=== PATIENT | female | born 1945 | race Caucasian/White ===

== ENCOUNTER 2019-01-09 11:35 | Outpatient (CLI) | payer OTHER, SELFPAY ==
--- NOTE | 2019-01-09 06:00 | DI.RAD_ITS ---
SYMPTOMS/DIAGNOSIS: SACROILIAC JOINT DYSFUNCTION, SACROILIAC JOINT INJECTION PAIN CLINIC: Fluoroscopy Time: 31.1 sec Images submitted from the pain clinic demonstrate needle localization of the left SI joint by Dr. Alexandre in conjunction with an SI joint injection.
[2019-01-09 11:46] VITALS: BP 143/75; PULSE 84; RESP 18; TEMP 37.4; O2SAT 97
[2019-01-09 12:41] VITALS: BP 140/88; PULSE 82; RESP 16; O2SAT 98
[2019-01-09] MEDS: methylPREDNISolone ACETATE 80 MG/ML VIAL IJ (12:44)
[2019-01-09] MEDS: Bupivacaine 0.5% Pres-Free 10 ML VIAL IJ (12:45)
[2019-01-09] MEDS: Omnipaque 240 MG/ML 50 ML BTL IJ (12:45)
--- NOTE | 2019-01-09 13:27 | PDOC.PAIN_ITS ---
Pain Clinic Procedure Note Current Active Problems Problem Status Onset Sacroiliac joint dysfunction of left side Chronic INTRA-ARTICULAR SI JOINT INJECTION SUSANA BLANKENSHIP has been referred to the [facility] for intra- articular SI joint injection. COMMENTS: Left SI joint dysfunction Patient was interviewed and the medical record reviewed. There were no medical, pharmacologic, radiographic or other structural contraindications to attempting fluoroscopically guided intra-articular SI joint injection. Risks and expected side effects as well as potential benefit of the procedure were reviewed and voiced concerns addressed. The printed consent form was signed and witnessed. Standard time-out procedure was performed. Patient was placed in the prone position on the fluoroscopy table and automated blood pressure cuff and pulse oximeter applied. The skin entry point for approaching { left l} SI joints was identified under the most advantageous fluoroscopic view and marked. Following thorough Chlorhexadine preparation of the skin and draping and 1% lidocaine infiltration of the skin entry point and subcutaneous tissues, a 22 gauge spinal needle was placed under fluoroscopic guidance into { left } SI joints was identified under the most advantageous fluoroscopic view and marked. Following thorough Chlorhexadine preparation of the skin and draping and 1% lidocaine infiltration of the skin entry point and subcutaneous tissues, a 22 gauge spinal needle was placed under fluoroscopic guidance into /left/ SI joint. Intra-articular placement was confirmed by a clear arthrogram resulting from the injection of 0.25ml Omnipaque 240, 1ml 0.5% bupivacaine, and half ml (40mg) of 80mg concentration Depomedrol were injected intra-articularily with an initial reproduction of a significant component of the usual pain. Vital signs were stable throughout the procedure and were as recorded in the docflowsheet by the nursing staff. If given, dosages of intravenous drugs for anxiolysis and analgesia were documented in MAR. Follow up plans and appointments were discussed with the patient. Post procedure instruction was given as documented in nursing documentation and having met discharge criteria, and was discharged from the [facility]. COMMENTS: Pain went from a 3/10 to a 0/10. She will follow-up as needed. She is complaining of pain in the upper lumbar spine and has had surgery since her last MRI. I would consider updating her MRI if she is not improved. CC: Carrol Hernandez
== END 2019-01-09 11:55 ==
PROVIDERS: PCP Physician Assistant Medical; Visit Provider Anesthesiology Pain Medicine
DX: M53.3 Sacrococcygeal disorders, not elsewhere classified (principal)
CPT/HCPCS: 20605; 72200; J1040; Q9967

== ENCOUNTER 2019-01-23 00:55 | Outpatient (CLI) | payer MEDICARE, OTHER, SELFPAY ==
--- NOTE | 2019-01-23 14:31 | DI.MRI_ITS ---
SYMPTOMS/DIAGNOSIS: CHRONIC NECK PAIN MRI OF THE CERVICAL SPINE: Comparison is 11/13/17. At C7-T1, there is no focal disc herniation, central spinal canal or neural foraminal stenosis. At C6-C7, there is prominence of the left uncovertebral joint causing mild left neural foraminal stenosis. The disc space is otherwise unremarkable. At C5-C6, there is no focal disc herniation, central spinal canal or neural foraminal stenosis. Mild hypertrophic changes of the right facet joint is noted. At C4-C5, there is prominence of the osteophyte-disc complex eccentric to the right. There is mild narrowing of the central spinal canal. There are hypertrophic changes of the right uncovertebral joint causing moderately severe right neural foraminal stenosis. There is mild narrowing of the left neural foramen. At C3-C4, there is mild prominence of the left uncovertebral joint causing mild left neural foraminal narrowing. Otherwise, the disc level is unremarkable. C2-C3 is unremarkable. IMPRESSION: Stable degenerative changes throughout the cervical spine when compared to the examination from 11/13/17.
== END 2019-01-23 01:15 ==
PROVIDERS: PCP Physician Assistant Medical; Visit Provider Nurse Practitioner Family
DX: M54.2 Cervicalgia (principal); M47.812 Spondylosis without myelopathy or radiculopathy, cervical region; M48.02 Spinal stenosis, cervical region
CPT/HCPCS: 72141

== ENCOUNTER 2019-02-18 10:15 | Outpatient (CLI) | payer OTHER, SELFPAY ==
[2019-02-18 12:46] LABS: CREATININE 0.77 mg/dL (0.55-1.02)
== END 2019-02-18 10:35 ==
PROVIDERS: PCP Physician Assistant Medical; Visit Provider Nurse Practitioner Family
DX: M96.1 Postlaminectomy syndrome, not elsewhere classified (principal)
CPT/HCPCS: 36415; 82565

== ENCOUNTER 2019-03-07 00:40 | Outpatient (CLI) | payer OTHER, MEDICARE, SELFPAY ==
[2019-03-07] MEDS: Normal Saline Flush 10 ML SYR IVP (15:54)
[2019-03-07] MEDS: Gadoterate meglumine 20 ML VIAL 14 ML IVP (15:55)
--- NOTE | 2019-03-07 16:07 | DI.MRI_ITS ---
SYMPTOM/DIAGNOSIS: L5-s1 FUSION, H/O LUMBAR LAMINECTOMY MRI LUMBAR SPINE: Comparison is made with 20 November 2013. T1, T2 and STIR sagittal , T1 and T2 axial and pre and post Gadolinium FS T1 axial and sagittal sequences were performed. Laminectomy defects are seen at the L3 and L4 levels. The T-10, 11 through T12 L-1 levels are unremarkable. At L1-2 there is mild concentric disc bulging but no significant central canal stenosis or neural foraminal narrowing. At L2-3 there are end plate osteophytes projecting greater on the right side. There is mild broad based disc bulging. There are mild facet degenerative changes. There is mild right neural foraminal narrowing. There is slight central canal stenosis. At L3-4 there are broad based osteophytes and mild disc bulging. There are mild facet degenerative changes. There is severe left and mild to moderate right neural foraminal narrowing but no significant central canal stenosis. At L4-5 there is mild broad based disc bulging. There are mild facet degenerative changes as well as post surgical changes. There is moderate right neural foraminal narrowing but no significant central canal stenosis. At L5-S1, there is slight disc bulging. There are moderate facet degenerative changes but no significant central canal stenosis or neural foraminal narrowing. The conus medullaris appears normal. The aorta is normal in diameter. There is no evidence of a disc herniation or abnormal areas of enhancement post gadolinium. IMPRESSION: Degenerative disc changes and facet degenerative changes which cause neural foraminal narrowing which is greatest on the left side at L3-4. There is no significant central canal stenosis.
== END 2019-03-07 01:00 ==
PROVIDERS: PCP Physician Assistant Medical; Visit Provider Nurse Practitioner Family
DX: M51.36 Other intervertebral disc degeneration, lumbar region (principal); M47.816 Spondylosis without myelopathy or radiculopathy, lumbar region; Z98.1 Arthrodesis status
CPT/HCPCS: 72158

== ENCOUNTER 2019-03-26 12:48 | Emergency (ER) | payer OTHER, SELFPAY ==
[2019-03-26 12:51] VITALS: BP 141/73; PULSE 80; RESP 16; TEMP 36.7; O2SAT 97
[2019-03-26] MEDS: predniSONE 20 MG TAB 60 MG PO (14:29)
[2019-03-26 14:52] VITALS: BP 141/73; PULSE 80; RESP 16; TEMP 36.7; O2SAT 97
--- NOTE | 2019-03-26 14:59 | ED.GENADUL_ITS ---
Discharge Plan Disposition Patient Disposition: HOME Condition: Stable Discharge Details Chief Complaint: Nk/Back Pain Clinical Impression: Acute exacerbation of chronic low back pain Primary Care Provider: Carrol Hernandez ED Provider: Shalini Crowe Home Meds and New Rx's Prescriptions: New prednisone 50 mg tablet 50 mg PO DAILY Qty: 4 RF: 0 tramadol 50 mg tablet 50 mg PO BID PRN (Reason: pain) Qty: 6 RF: 0 Continued lorazepam 2 mg tablet 2 mg PO TID RF: 0 folic acid 1 mg tablet 1 mg PO .6 days per week RF: 0 acetaminophen [Tylenol Extra Strength] 500 mg tablet 1,000 mg PO DAILY PRNRF: 0 diclofenac sodium 1 % gel 4 gm TP QID PRN (Reason: low back pain) 6 Days Qty: 100 RF: 11 methotrexate sodium 25 mg/mL solution 12.5 mg SC QWEEK RF: 0 metformin 500 MG tablet 500 mg PO DAILY RF: 0 multivitamin [Daily Value] 1 EACH tablet 1 ea PO DAILY RF: 0 aspirin 81 MG tablet,chewable 81 mg PO DAILY RF: 0 Slow-Mag 71.5 MG tablet,delayed release (DR/EC) 71.5 mg PO BID RF: 0 metformin 500 MG tablet 1,000 mg PO HS RF: 0 glimepiride 1 MG tablet 1 mg PO BID RF: 0 venlafaxine 37.5 mg tablet 37.5 mg PO BID RF: 0 Discharge Instructions Instructions: Prednisone (By mouth), Tramadol (By mouth), Low Back Strain (ED) Additional Instructions: Please return immediately to the emergency department if you develop any new or worsening symptoms or if you become otherwise concerned. It is extremely important that you call as soon as possible to make an appointment to be seen by her primary care doctor. Please do not take tramadol within 8 hours of taking any other sedating medications including her lorazepam. Do not drive, operate machinery, or make important decisions after taking tramadol. Referrals: Carrol Hernandez [Primary Care Provider] - Discharge Data Discharge Date/Time-TO BE ENTERED AT DEPARTURE: 03/26/19 14:52 Medical Decision Making Samia Mancuso is a 73-year-old woman with a history of non-insulin dependent diabetes, urinary incontinence, chronic low back pain status post lumbar fusion and laminectomy presenting to the emergency department with acute on chronic low back pain beginning this morning similar to prior exacerbations. On exam patient is very well and nontoxic appearing. Mild tenderness of the middle lumbar spine and right paraspinal area. Normal neurologic exam. Postvoid residual bladder scan performed by nursing, 0 mls. Exam/history is not consistent with epidural abscess/hematoma, cauda equina syndrome, other cord compression, infectious etiology, acute fracture, acute aortic etiology. Plan for short course tramadol, prednisone burst. Patient has lorazepam on her medication list. She reports that she does not take this frequently. I had a lengthy discussion with the patient regarding safe use of tramadol including not taking within 8 hours of taking lorazepam, return to emergency department precautions, home care, and importance of outpatient follow-up. Patient verbalized understanding the plan was amenable. Patient was discharged home with clear plan for outpatient follow-up. All questions were answered. Medical Records Medical records reviewed: Yes I reviewed the patient's medical records. HPI General Mode of arrival: ambulatory . Date/Time Provider Initiated Documentation: 03/26/19 13:01 . Limitations to Documentation: no limitations . Information obtained by: patient, RN notes reviewed and old records reviewed . HPI Narrative: Samia Mancuso is a 73-year-old woman with a history of diabetes, urinary incontinence, chronic back pain presenting to the emergency department with exacerbation of back pain. Patient reports that she has had back surgeries in the past including fusion and laminectomy, with most recent surgery being August 2018. Patient reports that she has intermittently been on tramadol at times for pain, but has not taken tramadol since directly after her surgery. Patient reports that she woke up this morning and set at a set up in bed, and had sudden onset sharp pain in her lower back. Patient reports that she has had similar pain multiple times in the past, but not since her recent surgery. Pain is exactly typical in location, quality, and severity as her prior exacerbations of back pain. Pain is middle and right low back, does not radiate. She denies numbness or weakness of the lower extremities including of the saddle region. She denies constipation. Patient reports that she had some incontinence of urine this morning, which she has had in the past and is typical of when her back pain acts up. No urinary retention. She denies any other pain or any recent illness. Does not take blood thinners. Has been eating and drinking as usual. Related Data Home Medications Medication Instructions Recorded Confirmed metformin 500 mg PO DAILY tab-cap 07/22/13 03/26/19 Slow-Mag 71.5 mg PO BID 12/19/17 02/18/19 aspirin 81 mg PO DAILY tab-cap 12/19/17 03/26/19 multivitamin [Daily Value] 1 ea PO DAILY 12/19/17 03/26/19 glimepiride 1 mg PO BID 12/21/17 03/26/19 metformin 1,000 mg PO HS 12/21/17 03/26/19 lorazepam 2 mg tablet 2 mg PO TID tab 12/11/18 03/26/19 venlafaxine 37.5 mg tablet 37.5 mg PO BID tab 12/11/18 03/26/19 acetaminophen 500 mg tablet 1,000 mg PO DAILY PRN tab 02/18/19 03/26/19 diclofenac 1 % topical gel 4 gm TP QID PRN 6 Days #100 gm 02/18/19 03/26/19 folic acid 1 mg tablet 1 mg PO .6 days per week tab 02/18/19 03/26/19 methotrexate sodium 25 mg/mL 12.5 mg SC QWEEK 02/18/19 03/26/19 injection solution prednisone 50 mg PO DAILY #4 tab 03/26/19 tramadol 50 mg PO BID PRN #6 tab 03/26/19 Previous Rx's Medication Instructions Recorded diclofenac 1 % topical gel 4 gm TP QID PRN 6 Days #100 gm 02/18/19 prednisone 50 mg PO DAILY #4 tab 03/26/19 tramadol 50 mg PO BID PRN #6 tab 03/26/19 Allergies Allergy/AdvReac Type Severity Reaction Status Date / Time baclofen Allergy Unverified 03/26/19 12:55 bupropion [From Wellbutrin] Allergy Unverified 03/26/19 12:55 cyclobenzaprine Allergy Unverified 03/26/19 12:55 [From Flexeril] erythromycin base Allergy Unverified 03/26/19 12:55 promethazine [From Phenergan] Allergy Unverified 03/26/19 12:55 Tetracyclines Allergy Unverified 03/26/19 12:55 fentanyl AdvReac Mild Unverified 03/26/19 12:55 linaclotide [From Linzess] AdvReac Unknown Massive Unverified 03/26/19 12:55 diarrhea after 1 dose celecoxib [From Celebrex] AdvReac GI BLEEDING Unverified 03/26/19 12:55 codeine phosphate AdvReac NAUSEA/VOMI Unverified 03/26/19 12:55 [From Tylenol-Codeine #3] TING hydromorphone HCl AdvReac Unverified 03/26/19 12:55 [From Dilaudid] morphine AdvReac VIOLENT Unverified 03/26/19 12:55 HEADACHE rofecoxib [From Vioxx] AdvReac GI BLEEDING Unverified 03/26/19 12:55 fiber Allergy Uncoded 03/26/19 12:55 General Stated Complaint: Nk/Back Pain FER: 4 Review of Systems Review of Systems Constitutional: denies fevers Eyes: denies eye pain ENT: denies facial pain, dental pain, sore throat Cardiovascular: denies chest pain, edema Respiratory: denies SOB, cough GI: denies abdominal pain, vomiting, diarrhea : denies flank pain MSK: denies neck pain, arthralgias, myalgias, reports back pain Skin: denies rash Neuro: denies headaches, numbness, weakness PFSH Medical History Rectocele (Acute) Urinary retention (Acute) Psoriatic arthritis (Chronic) Statin intolerance (Chronic) Back pain Calcific tendonitis of left upper arm Cervical pain Chronic pain Chronic, continuous use of opioids Collagenous colitis Cystocele without uterine prolapse DJD (degenerative joint disease) of knee Depression Depression with anxiety Diabetes mellitus Fibromyalgia Hypercholesterolemia Hyperlipidemia Leg pain Psoriasis Spinal stenosis Stress incontinence in female Type II diabetes mellitus Upper GI bleed Surgical History Failed spinal cord stimulator (Acute) H/O spinal fusion (Acute) Cholecystectomy Colonoscopy - MAC Ligation of fallopian tube Spinal Fusion Trigger Finger release Social History Smoking/Tobacco Use Status: Never Alcohol Intake: never Drug use: Never Substance use type: does not use Household members: children Number of Children: 2 Do you feel safe at home: Yes Do you feel safe in your relationship?: Yes Exam Narrative Exam Narrative: Constitutional: well and [id number], pleasant, conversing normally HENT: head atraumatic/normocephalic/normal inspection, mucous membranes moist Eyes: conjunctiva normal, sclera normal, pupils 3mm b/l Neck: no stridor, normal ROM, trachea midline Chest: normal inspection Resp: normal work of breathing, LCTAB Cardio: normal rate, normal rhythm, no murmur appreciated Back: normal inspection, no rash, well-healed surgical scars over the lumbar vertebrae, nonfocal tenderness to palpation of the lumbar vertebrae and right lumbar paraspinals without overlying skin changes, no erythema or edema, no crepitus or deformity noted Skin: warm, dry, normal color, no rash Neuro: alert, not altered, grossly non-focal, normal tone, motor 5 out of 5 bilateral lower extremities, sensation bilateral lower extremities intact Ext: no edema Psych: normal mood, normal affect, normal behavior Course Vital Signs Temperature 36.7 C 03/26/19 12:51 Pulse 80 03/26/19 12:51 Respiratory Rate 16 03/26/19 12:51 Blood Pressure 141/73 H 03/26/19 12:51 Pulse Oximetry 97 03/26/19 12:51 Temperature 36.7 C 03/26/19 12:51 Temperature Source Skin 03/26/19 12:51 Pulse 80 03/26/19 12:51 Respiratory Rate 16 03/26/19 12:51 Respiratory Effort Non-Labored 03/26/19 13:12 Blood Pressure 141/73 H 03/26/19 12:51 Blood Pressure Position Sitting 03/26/19 12:51 Pulse Oximetry 97 03/26/19 12:51 Pain Level 7 03/26/19 13:15 Comment 03/26/19 12:51
== END 2019-03-26 14:52 | disposition home or self-care (01) ==
PROVIDERS: Emergency Provider Student in an Organized Health Care Education/Training Program; PCP Physician Assistant Medical
DX: M54.5 Low back pain (principal); G89.29 Other chronic pain; Z98.890 Other specified postprocedural states; E11.9 Type 2 diabetes mellitus without complications; Z79.84 Long term (current) use of oral hypoglycemic drugs
CPT/HCPCS: 99283; J7512

== ENCOUNTER → 2020-04-07 12:21 | Outpatient (BNVA) | payer MEDICARE, SELFPAY | PROVIDERS: PCP Physician Assistant Medical; Referring Provider Physician Assistant Medical; Visit Provider Nurse Practitioner Adult Health | DX: G31.84 Mild cognitive impairment of uncertain or unknown etiology (principal); R26.89 Other abnormalities of gait and mobility; F41.8 Other specified anxiety disorders; E11.9 Type 2 diabetes mellitus without complications; Z79.84 Long term (current) use of oral hypoglycemic drugs | CPT/HCPCS: 99204; 99215 ==

== ENCOUNTER 2020-05-11 11:48 | Day surgery (SDC) | payer MEDICARE, SELFPAY ==
[2020-05-11 12:34] VITALS: BP 152/94; PULSE 76; RESP 18; TEMP 36.5; O2SAT 96
[2020-05-11] MEDS: Midazolam/Ketamine/Ondansetron (3/25/2MG) 1 TAB 1 EACH SL (13:05)
[2020-05-11] MEDS: Tetracaine 0.5% 4 ML BTL OS (13:06)
[2020-05-11] MEDS: Povidone-Iodine Ophth 30 ML BTL (13:06)
[2020-05-11] MEDS: Lidocaine 1% Pres-Free 5 ML VIAL (13:15)
[2020-05-11] MEDS: Moxifloxacin-PF 1 MG/ML VIAL (13:16)
[2020-05-11] MEDS: Balanced Salt Soln.-PLUS 500 ML BAG (13:18)
[2020-05-11] MEDS: Lidocaine 2% Jelly 6 ML SYR (13:19)
--- NOTE | 2020-05-11 13:51 | W.PM.DSUDISC ---
Discharge Plan Disposition Patient Disposition: HOME Condition: Good Discharge Details Reason For Visit: Cataract and glaucoma, left eye Attending Provider: Daryl Romero Primary Care Provider: Polina Gamez Blakeslee Meds and New Rx's Prescriptions: No Action folic acid 1 mg tablet 1 mg PO .6 days per week RF: 0 acetaminophen [Tylenol Extra Strength] 500 mg tablet 1,000 mg PO DAILY PRNRF: 0 multivitamin [Daily Value] 1 EACH tablet 1 ea PO DAILY RF: 0 aspirin 81 MG tablet,chewable 81 mg PO DAILY RF: 0 Slow-Mag 71.5 MG tablet,delayed release (DR/EC) 71.5 mg PO BID RF: 0 lorazepam 2 mg tablet 2 mg PO BID PRNRF: 0 glimepiride 1 mg tablet 1 mg PO QAM RF: 0 betamethasone dipropionate 0.05 % cream 1 applic TP BID PRNRF: 0 cholecalciferol (vitamin D3) 125 mcg (5,000 unit) capsule 125 mcg PO DAILY RF: 0 metformin 500 mg tablet 500 mg PO BID RF: 0 venlafaxine 37.5 mg tablet 37.5 mg PO BID RF: 0 Discharge Orders Discharge Orders: Discharge Order (Routine); Ordered 05/11/20 Ordered By: Daryl Romero DS: Diagnosis Discharge Diagnosis (1) Nuclear sclerotic cataract of left eye: Status: Acute (2) Normal tension glaucoma of left eye, severe stage: Status: Acute
--- NOTE | 2020-05-11 13:54 | ROE_ITS ---
Date of service: 05/11/20 Time of Service: 13:54 Operative Note Operative Note DATE OF PROCEDURE: 05/11/20 PRE-OP DIAGNOSIS: Nuclear cataract, left eye; normal-tension glaucoma, left eye, severe stage PROCEDURE: 1. Cataract extraction using phacoemulsification with intraocular lens implant, left eye 2. Insertion of multiple anterior segment aqueous drainage devices (Glaukos iStent inject x 2) into trabecular meshwork, left eye SURGEON: Daryl Romero ANESTHESIA: MAC and local (subtenon's local anesthetic infiltration) ESTIMATED BLOOD LOSS: 0 PATHOLOGY: none sent COMPLICATIONS: None Patient was transported to: same day Patient's condition: stable Implants: 1. [employer] / [employer] Tecnis [id number] intraocular lens 2. Glaukos iStent inject trabecular micro-bypass stent x 2 Indications: 1. Progressive decreased vision due to cataract, left eye 2. Primary open angle glaucoma, left eye, normal tension type, severe stage Procedure Description: CATARACT SURGERY OPERATIVE REPORT PREOPERATIVE DIAGNOSIS: Nuclear cataract, left eye Normal-tension open angle glaucoma, left eye, severe stage POSTOPERATIVE DIAGNOSIS: Same OPERATION: 1. Cataract extraction using phacoemulsification with posterior chamber intraocular lens implant, left eye. 2. Insertion of multiple anterior segment aqueous drainage devices (Glaukos iStent inject x 2) into trabecular meshwork, left eye IOL: IOL User Acceptance Tester/Model: [employer] Vision / KENN Tecnis ZCB00 IOL Power: + 19.50 diopters IOL Serial Number: [id number] Optic Diameter: 6.0mm Haptic/Overall Diameter: 13.0mm PHACO INFO: Buddy [employer] Vision System with OZil and Active Fluidics Cumulative Dispersed Energy (CDE): 8.29 seconds SURGEON: Daryl Romero MD, NATALY ANESTHESIA: Monitored Anesthesia Care (MAC), with local sub-tenon's anesthetic infiltration COMPLICATIONS: None SPECIMENS: None INDICATIONS FOR PROCEDURE: Patient is a [age] lady with history of normal tension glaucoma, left eye greater than right with the left eye severely affected. She has significant visual field loss in the left eye. She also has a moderate nuclear cataract surgery of the patient and she wished to proceed. In addition, the option of glaucoma stent at the time of cataract surgery was offered to the patient and she desired this as well. PROCEDURE: The correct surgical eye was identified and marked as the left eye and the pupil was dilated in the preoperative area using mydriatics and cycloplegics. The dilated pupil size was 7.0 mm. Oral sedation was administered in the form of an Imprimis MKO Melt (midazolam 3mg/ketamine 25mg/ondansetron 2mg). The patient was brought to the operating room where cardiopulmonary monitoring was instituted and surgical time-out was performed, confirming the correct operative eye and IOL power. Topical anesthesia was administered and ophthalmic povidone-iodine 5% was instilled into the conjunctival fornices. Lidocaine gel was applied to the cornea and the arturo-ocular area was prepped with Betadine 10% solution and draped in the usual sterile fashion for intraocular surgery, including an aperture drape. A Tegaderm transparent film dressing was cut in half and used to cover the lashes and lid margins. Care was taken to sequester the lashes and lid margins under the Tegaderm dressing. A lid speculum was placed between the lids of the operative eye and the [employer] operating microscope was maneuvered into position. Benigno scissors were then used to make a conjunctival buttonhole approximately 6mm posterior to the limbus in the inferonasal quadrant. Blunt dissection was carried out to expose bare sclera, and a blunt-tipped sub-tenon?s anesthesia cannula was introduced and passed posteriorly along the globe where non-preserved plain lidocaine was injected into posterior sub-Tenon?s space. A sideport knife was used to make a paracentesis port superior/superiortemporally. Intraocular phenylephrine/lidocaine was injected into the anterior chamber. The anterior chamber was then filled with viscoelastic. A 2.4mm keratome knife was used to create a half-thickness groove at the limbus and then to construct a three-plane near-clear corneal tunnel extending 2.0mm into clear cornea in the temporal position. . A flap was raised on the anterior capsule and capsulorhexis forceps were used to complete a continuous curvilinear capsulorhexis of 5.0 mm. Balanced salt solution was then used to perform cortical cleaving hydrodissection and nuclear hydrodelineation until the lens could be freely rotated within the capsular bag. The lens nucleus was then disassembled and removed within the capsular bag and iris plane using phacoemulsification. Residual cortical material was removed using the 45-degree angled silicone I/A tip with 0.3mm port. The posterior capsule was carefully polished to remove as much residual lens epithelial cells as safely possible. The capsular bag was then inflated and the anterior chamber deepened with viscoelastic. The lens implant described above was inserted into the capsular bag using the KENN [place] Injector. A Kuglen hook was used to dial the IOL into position. Residual viscoelastic was removed from posterior to the IOL, leaving viscoelastic in the anterior chamber. Miostat was then injected into the anterior chamber and the pupil was noted to come down round. The anterior ch alondra was then slightly over-filled with viscoelastic. The microsope and the patient's head were tilted into the ideal position for viewing of the anterior chamber angle. Viscoelastic was placed on the cornea followed by a surgical gonionlens, and the anterior chamber angle landmarks were identified. The [employer] iStent inject handpiece was introduced into the anterior chamber and the insertion sleeve was retracted once the injector was distal to the pupillary margin. The trocar was advanced through the central portion of the trabecular meshwork and into the back wall of Schlemm's canal in the superiornasal quadrant, with care taken to ensure the micro-insertion tube was perpendicular to the trabecular meshwork. The trabecular meshwork was lightly dimpled and the stent was injected without difficulty. There was a moderate amount of hemorrhage in the angle through the stent aperture. The hemorrhage was clearly bleeding additional viscoelastic. The same procedure was then performed in the inferiornasal quradrant. Both stents were then examined and noted to be in good position within the trabecular meshwork. The microscope and the patients head were returned to the normal coaxial position. Viscoelatic was then removed from the anterior chamber using the I/A handpiece. The lens implant was noted to center nicely within the capsular bag. The incisions were stromally hydrated, and the anterior chamber was reformed using BSS. Then 0.5cc of moxifloxacin 1.0mg/ml were injected into the capsular bag and anterior chamber. The incisions were checked with a Weck spear and found to be secure. Several drops of ophthalmic povidone-iodine 5% were then applied to the eye followed by two drops of Imprimis combination prednisolone/moxifloxacin/nepafenac solution. The drapes were removed and a clear plastic protective eye shield was placed over the eye. The patient was then returned to [facility] Day Surgery in stable condition.
[2020-05-11 14:05] VITALS: BP 164/83; PULSE 76; RESP 16; TEMP 36.5; O2SAT 96
== END 2020-05-11 14:20 | disposition home or self-care (01) ==
PROVIDERS: PCP Family Medicine; Visit Provider Ophthalmology
PROC: (CPT 0191T; principal; 2020-05-11 13:00)
DX: H25.12 Age-related nuclear cataract, left eye (principal); H40.122 Low-tension glaucoma, left eye
CPT/HCPCS: 0191T; 66984; V2632; C1783; J2001

== ENCOUNTER → 2020-10-06 07:36 | Outpatient (BNVA) | payer MEDICARE, SELFPAY | PROVIDERS: PCP Family Medicine; Referring Provider Physician Assistant Medical; Visit Provider Nurse Practitioner Adult Health | DX: G31.84 Mild cognitive impairment of uncertain or unknown etiology (principal) | CPT/HCPCS: 99213; 99443 ==

== ENCOUNTER → 2023-11-07 12:22 | Outpatient (BNVA) | payer MEDICARE, SELFPAY | PROVIDERS: PCP Family Medicine; Referring Provider Family Medicine; Visit Provider Nurse Practitioner Adult Health | DX: G31.84 Mild cognitive impairment of uncertain or unknown etiology (principal); H93.293 Other abnormal auditory perceptions, bilateral | CPT/HCPCS: 99205 ==